=== PATIENT | female | born 1960 | race Caucasian/White ===

== ENCOUNTER 2017-12-23 16:59 | Emergency (ER) | payer OTHER ==
[~2017-12-23] VITALS: Ht 165.1 cm; Wt 69.0 kg
--- OUTSIDE RECORDS SUMMARY | ~2017-12-23 | XMS | Clinical Summary ---
Demographics + + + | Address | [address] | | | [place] [address] | + + + | Home Phone | | + + + | Preferred Language | Unknown | + + + | Marital Status | | + + + | Yarsanism Affiliation | Unknown | + + + | Race | Unknown | + + + | Ethnic Group | Unknown | + + + Author + + + | Author | [facility] | | | and [place] | + + + | Organization | [facility] | | | and [place] | + + + | Address | Unknown | + + + | Phone | Unavailable | + + + Support + + +---------+ + | Name | Relationship | Address | Phone | + + +---------+ + | WILL CORTES | ECON | Unknown | | + + +---------+ + Care Team Providers + +------+ + | Care Glove Factory Sewer Name | Role | Phone | + +------+ + PP | Unavailable | + +------+ + Allergies No Known Allergies Current Medications + + +-------+---------+------+------+-------+ | Prescription | Sig. | Disp. | Refills | Star | End | Statu | | | | | | t | Date | s | | | | | | Date | | | + + +-------+---------+------+------+-------+ | ranitidine | Take 300 mg by mouth | | | 12/11 | | Activ | | (ZANTAC) 300 MG | Daily. | | | 07/30 | | e | | tablet | | | | 12 | | | + + +-------+---------+------+------+-------+ | Triamcinolone | 2 sprays at bedtime | | | 12/11 | | Activ | | Acetonide (NASACORT | | | | 07/30 | | e | | AQ NA) | | | | 12 | | | + + +-------+---------+------+------+-------+ | telmisartan | Take 80 mg by mouth | | | | | Activ | | (MICARDIS) 80 MG | Daily. | | | 10/29 | | e | | tablet | | | | 10 | | | + + +-------+---------+------+------+-------+ Active Problems + + + | Problem | Noted Date | + + + | CHRONIC TONSILLITIS | 10/16/2009 | + + + | THRUSH | 11/21/2008 | + + + | IMPACTED CERUMEN | 11/21/2008 | + + + Social History + +-------+ +--------+------+ | Tobacco Use | Types | Packs/Day | Years | Date | | | | | Used | | + +-------+ +--------+------+ | Never Assessed | | | | | + +-------+ +--------+------+ + + + | Sex Assigned at | Date Recorded | | | | + + + | Not on file | | + + + Plan of Treatment + + + + + | Health Maintenance | Due Date | Last Done | Comments | + + + + + | Vaccine: | | | | | Dtap/Tdap/Td (1 - | 9 | | | | Tdap) | | | | + + + + + | Cervical Cancer | | 04/12/2009 | | | Screening (Pap) | 5 | | | + + + + + | Vaccine: Influenza | | | | | (#1) | 8 | | | + + + + + Results Not on filefrom Last 3 Months"
--- OUTSIDE RECORDS SUMMARY | ~2017-12-23 | XMS | Clinical Summary ---
Demographics + + + | Address | [address] | | | [place] [address] | + + + | Home Phone | | + + + | Preferred Language | Unknown | + + + | Marital Status | | + + + | Presybeterian Affiliation | Unknown | + + + | Race | Unknown | + + + | Ethnic Group | Unknown | + + + Author + + + | Author | [facility] | | | and [place] | + + + | Organization | [facility] | | | and [place] [...] Team Providers + +------+ + | Care Precision Agronomist Name | Role | Phone | + [...]
[~2017-12-23 16:59] MED LIST: AVAPRO300 MG PO; LATANOPROST2.5 ML OPTH; MAGNESIUM400 MG PO; PROGESTERONE200 MG PO; VITAMIN D32000 UNIT PO; VIVELLE-DOT1 EAC1 TD
== END 2017-12-23 19:25 | disposition home or self-care (01) ==
LOC: ED 16:59
PROC: 0HQMXZZ Repair Right Foot Skin, External Approach (ICD-10-PCS; principal; 2017-12-23)
DX: S91.011A Laceration without foreign body, right ankle, initial encounter (principal); I10 Essential (primary) hypertension; Z91.040 Latex allergy status; Z79.899 Other long term (current) drug therapy; Z23 Encounter for immunization; W26.0XXA Contact with knife, initial encounter
CPT/HCPCS: 12001; 90471; 90715; 99282

== ENCOUNTER 2021-06-05 07:35 | Emergency (ER) | payer OTHER ==
[~2021-06-05] VITALS: Ht 165.1 cm; Wt 69.4 kg
[2021-06-05] MEDS ORDERED: TELMISARTAN80 MG PO (07:51)
[2021-06-05] MEDS ORDERED: FAMOTIDINE40 MG PO (07:52)
== END 2021-06-05 09:16 | disposition home or self-care (01) ==
LOC: ED 07:35
DX: S62.141A Displaced fracture of body of hamate [unciform] bone, right wrist, initial encounter for closed fracture (principal); I10 Essential (primary) hypertension; Z91.040 Latex allergy status; Z88.8 Allergy status to other drugs, medicaments and biological substances; W00.0XXA Fall on same level due to ice and snow, initial encounter
CPT/HCPCS: 73110; 99283-25